=== PATIENT | female | born 1980 | race Caucasian/White ===

== ENCOUNTER 2018-07-07 16:55 | Inpatient (IN) | payer OTHER ==
[~2018-07-07] VITALS: Ht 162.6 cm; Wt 163.3 kg
[2018-07-07 16:55] VITALS: BP_SYST 156
[2018-07-07] MEDS ORDERED: methylPREDNISolone SOD SUCC/PF 62.5 MG/ML VIAL IVP ONE (17:30)
[2018-07-07] MEDS ORDERED: IPRATROPIUM BROM 0.5 MG/2.5 ML VIAL.NEB (ATROVENT) INH ONE (17:30)
[2018-07-07] MEDS ORDERED: ALBUTEROL SULFATE 0.083% 2.5 MG/3 ML VIAL.NEB INH ONE (17:30)
[2018-07-07 17:46] VITALS: BP_SYST 156
[2018-07-07 18:08] LABS: BASOPHILS # (AUTO) 0.4 K/uL (0.0-0.2); BASOPHILS % (AUTO) 3.1 % (0.0-2.0); EOSINOPHILS # (AUTO) 0.2 K/uL (0.0-0.4); EOSINOPHILS % (AUTO) 1.5 % (0.0-4.0); HEMATOCRIT 40.5 % (36-48); LYMPHOCYTES # (AUTO) 2.7 K/uL (1.0-5.5); LYMPHOCYTES % (AUTO) 19.1 % (20.5-51.5); MEAN CORPUSCULAR HEMOGLOBIN 29 pg (27-31); MEAN CORPUSCULAR HGB CONC 32 % (32-36); MEAN CORPUSCULAR VOLUME 91 fL (79.0-98.0); MONOCYTES # (AUTO) 0.9 K/uL (0.0-1.0); MONOCYTES % (AUTO) 6.2 % (1.7-9.3); NEUTROPHILS # (AUTO) 10.1 K/uL (1.8-7.7); NEUTROPHILS % (AUTO) 70.1 % (40.0-70.0); PLATELET COUNT (AUTO) 244 K/uL (130-430); RED BLOOD CELL COUNT(AUTO) 4.45 MIL/uL (4.2-6.2); RED CELL DISTRIBUTION WIDTH 15.6 % (9.0-15.0); WHITE BLOOD COUNT (AUTO) 14.3 K/uL (4.8-10.8)
[2018-07-07 18:38] LABS: CALCIUM 8.7 mg/dL (8.4-11.0); CREATININE 0.65 mg/dL (0.55-1.30)
[2018-07-07 18:46] LABS: ALBUMIN 2.9 g/dL (3.4-4.8); TOTAL BILIRUBIN 0.3 mg/dL (0.0-1.0)
[2018-07-07] MEDS ORDERED: BENZ1TAB7 PO (18:56)
[2018-07-07] MEDS ORDERED: HAL5 PO (18:58)
[2018-07-07] MEDS ORDERED: MELA3TAB PO (18:58)
[2018-07-07 20:38] VITALS: BP_SYST 121
[2018-07-07 20:44] VITALS: BP_SYST 156
[2018-07-07] MEDS ORDERED: ZOLPIDEM TARTRATE 5 MG TABLET PO PRN (20:45)
[2018-07-07] MEDS: HALOPERIDOL 5 MG TABLET (HALDOL) PO SCH (21:51)
[2018-07-07] MEDS: methylPREDNISolone SOD SUCC 40 MG/ML VIAL IVP SCH (21:51)
[2018-07-07] MEDS ORDERED: cefTRIAXone 1 GM VIAL ONE (21:59)
[2018-07-07] MEDS: ACETAMINOPHEN 325 MG TABLET PO PRN (22:56)
[2018-07-08 00:18] VITALS: BP_SYST 150
[2018-07-08] MEDS: IPRATROPIUM/ALBUTEROL SULFATE 3 ML AMPUL.NEB INH SCH ×4 (00:29→20:14)
[2018-07-08] MEDS: methylPREDNISolone SOD SUCC 40 MG/ML VIAL IVP SCH ×3 (06:36→21:49)
[2018-07-08 06:49] LABS: BASOPHILS % (AUTO) 0.3 % (0.0-2.0); HEMATOCRIT 43.7 % (36-48); HEMOGLOBIN 14.3 g/dL (12.0-16.0); LYMPHOCYTES % (AUTO) 7.4 % (20.5-51.5); MEAN CORPUSCULAR HEMOGLOBIN 30 pg (27-31); MEAN CORPUSCULAR HGB CONC 33 % (32-36); MEAN CORPUSCULAR VOLUME 91 fL (79.0-98.0); MONOCYTES # (AUTO) 0.1 K/uL (0.0-1.0); MONOCYTES % (AUTO) 0.8 % (1.7-9.3); NEUTROPHILS # (AUTO) 12.5 K/uL (1.8-7.7); NEUTROPHILS % (AUTO) 91.5 % (40.0-70.0); PLATELET COUNT (AUTO) 299 K/uL (130-430); RED BLOOD CELL COUNT(AUTO) 4.82 MIL/uL (4.2-6.2); RED CELL DISTRIBUTION WIDTH 15.4 % (9.0-15.0); WHITE BLOOD COUNT (AUTO) 13.6 K/uL (4.8-10.8)
[2018-07-08 07:26] LABS: ALBUMIN 2.9 g/dL (3.4-4.8); CALCIUM 9.2 mg/dL (8.4-11.0); CREATININE 0.67 mg/dL (0.55-1.30); POTASSIUM 4.6 mmol/L (3.5-5.1); THYROID STIMULATING HORMONE 1.15 uIu/mL (0.34-4.82); TOTAL BILIRUBIN 0.2 mg/dL (0.0-1.0)
[2018-07-08 08:06] VITALS: BP_SYST 143
[2018-07-08] MEDS: HALOPERIDOL 5 MG TABLET (HALDOL) PO SCH ×2 (08:35→20:26)
[2018-07-08] MEDS: FAMOTIDINE 20 MG TABLET PO SCH (08:35)
[2018-07-08] MEDS: BENZTROPINE MESYLATE 1 MG TABLET PO SCH ×2 (08:35→20:26)
[2018-07-08 11:24] VITALS: BP_SYST 140
[2018-07-08] MEDS: PEG 400/HYPROMELLOSE/GLYCERIN 15 ML DROPS OP SCH ×3 (13:00→20:25)
[2018-07-08 16:33] VITALS: BP_SYST 121
[2018-07-08 19:47] VITALS: BP_SYST 134
[2018-07-08] MEDS: POLYMYXIN B OP SCH (20:25)
[2018-07-08] MEDS: BACITRACIN OP SCH (20:25)
[2018-07-08 23:02] VITALS: BP_SYST 137
[2018-07-09] MEDS: IPRATROPIUM/ALBUTEROL SULFATE 3 ML AMPUL.NEB INH SCH ×4 (01:37→19:42)
[2018-07-09] MEDS: methylPREDNISolone SOD SUCC 40 MG/ML VIAL IVP SCH ×3 (06:08→20:56)
[2018-07-09 07:57] VITALS: BP_SYST 132
[2018-07-09] MEDS: PEG 400/HYPROMELLOSE/GLYCERIN 15 ML DROPS OP SCH ×5 (09:29→20:49)
[2018-07-09] MEDS: BENZTROPINE MESYLATE 1 MG TABLET PO SCH ×2 (09:29→20:50)
[2018-07-09] MEDS: FAMOTIDINE 20 MG TABLET PO SCH (09:29)
[2018-07-09] MEDS: HALOPERIDOL 5 MG TABLET (HALDOL) PO SCH ×2 (09:29→20:56)
[2018-07-09 10:25] LABS: HEMATOCRIT 43.8 % (36-48); HEMOGLOBIN 14.7 g/dL (12.0-16.0); MEAN CORPUSCULAR HEMOGLOBIN 31 pg (27-31); MEAN CORPUSCULAR HGB CONC 34 % (32-36); MEAN CORPUSCULAR VOLUME 91 fL (79.0-98.0); PLATELET COUNT (AUTO) 322 K/uL (130-430); RED BLOOD CELL COUNT(AUTO) 4.79 MIL/uL (4.2-6.2); RED CELL DISTRIBUTION WIDTH 15.9 % (9.0-15.0)
[2018-07-09 10:29] LABS: WHITE BLOOD COUNT (AUTO) 22.9 K/uL (4.8-10.8)
[2018-07-09 10:40] LABS: CALCIUM 9.4 mg/dL (8.4-11.0); CREATININE 0.78 mg/dL (0.55-1.30); POTASSIUM 4.3 mmol/L (3.5-5.1)
[2018-07-09 11:22] LABS: ATYPICAL LYMPHOCYTES % 0 % (0-0); BAND % (MANUAL) 1 % (0-6); BASOPHILS % (MANUAL) 0 % (0-2); EOSINOPHILS % (MANUAL) 0 % (0-7); LYMPHOCYTES % (MANUAL) 7 % (20-46); MONOCYTES % (MANUAL) 5 % (0-11)
[2018-07-09] MEDS: INSULIN ASPART 100 UNITS/ML, 10 ML VIAL (NovoLOG) SUBCUT PRN ×3 (11:26→20:59)
[2018-07-09 11:54] VITALS: BP_SYST 128
[2018-07-09] MEDS ORDERED: MILK OF MAGNESIA 30 ML UDC PO PRN (15:30)
[2018-07-09] MEDS ORDERED: BISACODYL 5 MG TABLET.DR (DULCOLAX) PO ONE (15:30)
[2018-07-09 16:30] VITALS: BP_SYST 124
[2018-07-09 20:00] VITALS: BP_SYST 135
[2018-07-09] MEDS: DOCUSATE SODIUM 250 MG CAPSULE PO SCH (20:50)
[2018-07-09] MEDS: POLYMYXIN B OP SCH (20:50)
[2018-07-09] MEDS: BACITRACIN OP SCH (20:50)
[2018-07-09 23:50] VITALS: BP_SYST 129
[2018-07-10] MEDS: IPRATROPIUM/ALBUTEROL SULFATE 3 ML AMPUL.NEB INH SCH ×4 (01:00→18:45)
[2018-07-10] MEDS: ACETAMINOPHEN 325 MG TABLET PO PRN (03:36)
[2018-07-10] MEDS: methylPREDNISolone SOD SUCC 40 MG/ML VIAL IVP SCH (05:00)
[2018-07-10 08:13] VITALS: BP_SYST 155
[2018-07-10] MEDS: FAMOTIDINE 20 MG TABLET PO SCH (09:50)
[2018-07-10] MEDS: BENZTROPINE MESYLATE 1 MG TABLET PO SCH ×2 (09:50→20:31)
[2018-07-10] MEDS: DOCUSATE SODIUM 250 MG CAPSULE PO SCH ×2 (09:50→20:31)
[2018-07-10] MEDS: HALOPERIDOL 5 MG TABLET (HALDOL) PO SCH ×2 (09:50→20:31)
[2018-07-10] MEDS: PEG 400/HYPROMELLOSE/GLYCERIN 15 ML DROPS OP SCH ×4 (09:52→20:47)
[2018-07-10 12:00] VITALS: BP_SYST 130
[2018-07-10] MEDS: INSULIN ASPART 100 UNITS/ML, 10 ML VIAL (NovoLOG) SUBCUT PRN (12:00)
[2018-07-10] MEDS ORDERED: guaiFENesin/DEXTROMETHORPHAN 118 ML PO PRN (15:00)
[2018-07-10 16:49] VITALS: BP_SYST 130
[2018-07-10] MEDS: guaiFENesin/DEXTROMETHORPHAN 10 ML UDC PO PRN (18:40)
[2018-07-10 20:12] VITALS: BP_SYST 112
[2018-07-10] MEDS: methylPREDNISolone SOD SUCC/PF 62.5 MG/ML VIAL IVP SCH (20:34)
[2018-07-10] MEDS: BACITRACIN OP SCH (21:51)
[2018-07-10] MEDS: POLYMYXIN B OP SCH (21:51)
[2018-07-11] VITALS (7 sets, daily range): BP systolic 106–142
[2018-07-11] MEDS: guaiFENesin/DEXTROMETHORPHAN 10 ML UDC PO PRN ×2 (09:33→20:25)
[2018-07-11] MEDS: ACETAMINOPHEN 325 MG TABLET PO PRN (09:33)
[2018-07-11] MEDS: methylPREDNISolone SOD SUCC/PF 62.5 MG/ML VIAL IVP SCH (09:34)
[2018-07-11] MEDS: BENZTROPINE MESYLATE 1 MG TABLET PO SCH ×2 (09:34→20:25)
[2018-07-11] MEDS: HALOPERIDOL 5 MG TABLET (HALDOL) PO SCH ×2 (09:34→20:25)
[2018-07-11] MEDS: FAMOTIDINE 20 MG TABLET PO SCH (09:34)
[2018-07-11] MEDS: DOCUSATE SODIUM 250 MG CAPSULE PO SCH ×2 (09:34→20:25)
[2018-07-11] MEDS: PEG 400/HYPROMELLOSE/GLYCERIN 15 ML DROPS OP SCH ×4 (09:35→20:34)
[2018-07-11] MEDS: IPRATROPIUM/ALBUTEROL SULFATE 3 ML AMPUL.NEB INH SCH ×3 (13:28→19:40)
[2018-07-11] MEDS: INSULIN ASPART 100 UNITS/ML, 10 ML VIAL (NovoLOG) SUBCUT PRN (20:31)
[2018-07-11] MEDS: BACITRACIN OP SCH (20:35)
[2018-07-11] MEDS: POLYMYXIN B OP SCH (20:35)
[2018-07-11] MEDS ORDERED: PREDNISONE 20 MG TABLET PO SCH (21:00)
[2018-07-12] MEDS: IPRATROPIUM/ALBUTEROL SULFATE 3 ML AMPUL.NEB INH SCH ×3 (01:30→12:00)
[2018-07-12] MEDS: FAMOTIDINE 20 MG TABLET PO SCH (09:00)
[2018-07-12] MEDS ORDERED: PREDNISONE 10 MG TABLET PO SCH (09:00)
[2018-07-12] MEDS: PEG 400/HYPROMELLOSE/GLYCERIN 15 ML DROPS OP SCH ×2 (09:01→13:00)
[2018-07-12] MEDS: DOCUSATE SODIUM 250 MG CAPSULE PO SCH (09:01)
[2018-07-12] MEDS: HALOPERIDOL 5 MG TABLET (HALDOL) PO SCH (09:01)
[2018-07-12] MEDS: BENZTROPINE MESYLATE 1 MG TABLET PO SCH (09:01)
[2018-07-12 09:02] VITALS: BP_SYST 106
[2018-07-12] MEDS: guaiFENesin/DEXTROMETHORPHAN 10 ML UDC PO PRN (11:34)
[2018-07-12 12:03] VITALS: BP_SYST 111
[2018-07-12 16:45] VITALS: BP_SYST 106
== END 2018-07-12 17:55 | DRG 189 ==
LOC: SED 16:55 → STU 19:06 → SMU 07-11 20:46
PROVIDERS: ADMIT Internal Medicine; ATTEND Internal Medicine
PROC: 5A09357 Assistance with Respiratory Ventilation, Less than 24 Consecutive Hours, Continuous Positive Airway Pressure (ICD-10-PCS; principal; 2018-07-08)
DX: J96.02 Acute respiratory failure with hypercapnia (principal); J44.1 Chronic obstructive pulmonary disease with (acute) exacerbation; R45.851 Suicidal ideations; J45.901 Unspecified asthma with (acute) exacerbation; Z68.44 Body mass index [BMI] 60.0-69.9, adult; E66.01 Morbid (severe) obesity due to excess calories; J96.01 Acute respiratory failure with hypoxia; G47.33 Obstructive sleep apnea (adult) (pediatric); F32.9 Major depressive disorder, single episode, unspecified; F15.90 Other stimulant use, unspecified, uncomplicated; F25.9 Schizoaffective disorder, unspecified; R73.9 Hyperglycemia, unspecified; I50.9 Heart failure, unspecified; F17.210 Nicotine dependence, cigarettes, uncomplicated; T38.0X5A Adverse effect of glucocorticoids and synthetic analogues, initial encounter; Y92.89 Other specified places as the place of occurrence of the external cause; Z79.899 Other long term (current) drug therapy; Z59.0 Homelessness; Z91.5 Personal history of self-harm
CPT/HCPCS: 36415; 36600; 71045; 80048; 80053; 82803-TC; 82962; 83880; 84443-TC; 84484; 85007; 85025; 85027; 87081; 93005; 94640; 94660; 94760; 96374; 99285; J0696; J1030; J1815; J2930; J7060; J7512; J7613; J7620